=== PATIENT | female | born 1925 | race Caucasian/White ===

== ENCOUNTER 2016-10-24 05:01 | Emergency (ER) | payer MEDICARE ==
[2016-10-24] MEDS ORDERED: PROVENTIL 2.5 MG/3 ML NEB IH ONE ×2 (05:25→05:35)
[2016-10-24] MEDS ORDERED: TYLENOL 325 MG PO ONE (05:25)
[2016-10-24] MEDS ORDERED: NITRO-BID 2% UD PACKETS TOP ONE (05:27)
[2016-10-24 05:42] LABS: Mean Cell Volume 90.1 fl (78-100); Mean Corpuscular Hemoglobin 30.1 pg (26-32); Mean Platelet Volume 9.4 fl (6-9.5); Platelet Count 220 K/mm3 (150-450); Red Blood Count 3.35 M/mm3 (4.1-5.4); Red Cell Distribution Width 13.3 % (11.5-14.0); White Blood Count 10.7 K/mm3 (4.0-10.5)
[2016-10-24 05:44] LABS: Lactic Acid 1.3 (0.4-2.0); VBG BASE EXCESS 4.5 (-2.0-2.0); VBG CARBOXYHEMOGLOBIN 2.4 % T HGB (0.0-6.9); VBG HCO3- 30.3 meq/L (22-28); VBG HEMOGLOBIN 10.1; VBG O2 SATURATION 41.6 (95-100); VBG pH 7.39 (7.32-7.42)
[2016-10-24] MEDS ORDERED: NITRO-BID 2% UD PACKETS ONE (05:45)
--- NOTE | 2016-10-24 05:50 | ERPHSYRPT ---
- History of Present Illness Time Seen by Provider: 10/24/16 05:19 Source: patient, EMS (gave NTG SL and ASA 324mg po [employer]ER) Patient Subjective Stated Complaint: pt states she has been feeling sick since francesca. c/o sob and pain all over. Triage Nursing Assessment: pt alert and oriented. answers questions approp. pt very [place].pt arrive per ambulance. skin pale warm and moist. pt short of breath, lungs with crackles throughout. +3 edema noted to bilat lower ext, pt states unchanged for her. jvd noted to rt side Physician History: CC: short of breath Hx: 89 y/o patient of Dr Zhang/Cuco. She reports shortness of breath worse since yesterday AM. She has aches all over her body and felt like she was going to . Has home oxygen and CPAP. She takes dig and blood thinners for afib. She has a pacemaker. She does not desire mechanical ventilation or resuscitation. Timing/Duration: yesterday Severity: moderate, severe Allergies/Adverse Reactions: Iodinated Contrast Media - Oral and [Iodinated Contrast Media - IV Dye] Allergy (Verified 10/24/16 05:34) Penicillins Allergy (Verified 10/24/16 05:34) Home Medications: Alprazolam [Xanax 0.5 mg] 0.5 mg PO HS PRN 02/15/14 [History] Amlodipine Besylate 10 mg [Norvasc 10 MG] 10 mg PO DAILY 02/15/14 [History] Clopidogrel Bisulfate [Plavix] 37.5 mg PO DAILY 02/15/14 [History] Digoxin 0.125 mg Tablet [Lanoxin 0.125MG TABLET] 0.125 mg PO UD 02/15/14 [ History] Esomeprazole Magnesium [Nexium] 40 mg PO DAILY 02/15/14 [History] Furosemide [Lasix] 20 mg PO DAILY 02/15/14 [History] Isosorbide Mononitrate 30 mg [Imdur 30 MG] 30 mg PO BID 02/15/14 [History] Labetalol HCl [Trandate] 200 mg PO BID 02/15/14 [History] Ropinirole HCl [Requip] 3 mg PO BID 02/15/14 [History] Ferrous Sulfate 325 mg PO DAILY 05/08/15 [History] Ramipril [Altace] 10 mg PO DAILY 05/08/15 [History] Apixaban [Eliquis] 5 mg PO DAILY 10/24/16 [History] Donepezil HCl 10 mg [Aricept 10 MG] 10 mg PO DAILY 10/24/16 [History] Doxazosin Mesylate 2 mg [Cardura 2 mg] 2 mg PO DAILY 10/24/16 [History] Febuxostat [Uloric] 40 mg PO DAILY 10/24/16 [History] Hx Tetanus, Diphtheria Vaccination/Date Given: Yes (UNKNOWN) Hx Influenza Vaccination/Date Given: Yes Hx Pneumococcal Vaccination/Date Given: Yes Immunizations Up to Date: Yes - Review of Systems Constitutional: Fatigue, Malaise, No Fever, No Chills Eyes: No Symptoms Respiratory: Cough, Dyspnea Cardiac: No Chest Pain Abdominal/Gastrointestinal: Nausea, No Abdominal Pain, No Vomiting, No Diarrhea Genitourinary Symptoms: No Dysuria Skin: No Rash Neurological: No Focal Weakness, No Headache, No Parasthesia All Other Systems: Reviewed and Negative - Past Medical History Pertinent Past Medical History: Yes Neurological History: Peripheral Neuropathy, TIA ENT History: Cataracts Cardiac History: Hypertension Respiratory History: Sleep Apnea Endocrine Medical History: No Pertinent History Musculoskeletal History: Arthritis GI Medical History: Diverticulosis, GERD History: Renal Disease Psycho-Social History: Anxiety Other Medical History: pt poor historian - Past Surgical History Past Surgical History: Yes Neuro Surgical History: No Pertinent History Cardiac: CABG, Vascular Surgery Respiratory: No Pertinent History Gastrointestinal: Cholecystectomy Genitourinary: Kidney Surgery Musculoskeletal: No Pertinent History Female Surgical History: Hysterectomy - Social History Smoking Status: Former smoker Exposure to second hand smoke: No Drug Use: none Patient Lives Alone: Yes [place]) - Female History Hx Last Menstrual Period: post - Nursing Vital Signs Nursing Vital Signs: Initial Vital Signs Temperature 99.9 F Temperature Source Rectal Pulse Rate 60 Respiratory Rate 20 Blood Pressure [Right Arm] 159/52 Pain Intensity 2 - Physical Exam General Appearance: alert, other (resp distress) Eye Exam: PERRL/EOMI Ears, Nose, Throat Exam: dry mucous membranes Neck Exam: normal inspection, supple, No meningismus Respiratory Exam: respiratory distress (mild), crackles/rales Cardiovascular Exam: regular rate/rhythm Gastrointestinal/Abdomen Exam: soft, No tenderness, No distention, No mass, No guarding Back Exam: normal inspection Extremity Exam: pedal edema, No calf tenderness Neurologic Exam: alert, oriented x 3, cooperative, sensation nml, No motor deficits Skin Exam: warm, dry, No rash SpO2 Interpretation: hypoxic, O2 applied SpO2: 75 Oxygen Delivery: Room Air - Course Nursing assessment & vital signs reviewed: Yes EKG Interpreted by Me: RATE (63 atrial paced rhythm), Right Bundle Branch Block (unchanged from prior) Ordered Tests: Active Orders 24 hr Category Date Time Status Junior Accountant STAT Care 10/24/16 05:24 Active Catheter-[place] STAT Care 10/24/16 06:11 Active EKG-ER Only STAT Care 10/24/16 05:24 Active IV Insertion STAT Care 10/24/16 05:24 Active Oxygen-ED Only NASAL CANNULA 2 lpm Care 10/24/16 05:24 Active Pulse Oximetry (ED) STAT Care 10/24/16 05:24 Active CHEST 1 VIEW (PORTABLE) Stat Exams 10/24/16 05:24 Taken BLOOD CULTURE Stat Lab 10/24/16 05:40 Ordered CBC W DIFF Stat Lab 10/24/16 05:40 Completed CK-Creatinine Phosphokinase Routine Lab 10/24/16 05:40 Completed CMP Routine Lab 10/24/16 05:40 Completed CULTURE,URINE Stat Lab 10/24/16 05:55 Received DIGOXIN Routine Lab 10/24/16 05:40 Completed Lactic Acid Urgent Lab 10/24/16 05:40 Completed Manual Differential NC Stat Lab 10/24/16 05:40 Completed NT PRO BNP Routine Lab 10/24/16 05:40 Completed PROTIME WITH INR Stat Lab 10/24/16 05:40 Completed PTT Stat Lab 10/24/16 05:40 Completed TROPONIN Q3H Lab 10/24/16 05:40 Completed TROPONIN Q3H Lab 10/24/16 08:30 Ordered TROPONIN Q3H Lab 10/24/16 11:30 Ordered TROPONIN Q3H Lab 10/24/16 14:30 Ordered TROPONIN Q3H Lab 10/24/16 17:30 Ordered UA W/ MICROSCOPIC Stat Lab 10/24/16 06:00 Completed VENOUS BLOOD GAS Urgent Lab 10/24/16 05:40 Completed BiPap/CPAP Assessment STAT RT 10/24/16 05:54 Active Respiratory Nebulizer STAT RT 10/24/16 05:25 Completed Medication Summary Generic Name Dose Route Start Last Admin Trade Name Hayley PRN Reason Stop Dose Admin Azithromycin 250 mls @ 125 mls/hr 10/24/16 06:09 10/24/16 06:20 Zithromax 500 Mg/ 250 Ml Nacl Premix IV 10/24/16 08:08 125 mls/hr STAT ONE Administration Discontinued Medications Generic Name Dose Route Start Last Admin Trade Name Hayley PRN Reason Stop Dose Admin Acetaminophen 650 mg 10/24/16 05:25 10/24/16 06:20 Tylenol 325 Mg PO 10/24/16 05:26 650 mg STAT ONE Administration Acetaminophen Confirm 10/24/16 06:15 Tylenol 325 Mg Administered 10/24/16 06:16 Dose 650 mg .ROUTE .STK-MED ONE Albuterol Sulfate 2.5 mg 10/24/16 05:25 10/24/16 05:36 Proventil 2.5 Mg/3 Ml Neb IH 10/24/16 05:26 2.5 mg STAT ONE Administration Albuterol Sulfate Confirm 10/24/16 05:35 Proventil 2.5 Mg/3 Ml Neb Administered 10/24/16 05:36 Dose 2.5 mg IH .STK-MED ONE Furosemide 20 mg 10/24/16 06:09 10/24/16 06:20 Lasix 40 Mg/4 Ml IV 10/24/16 06:10 20 mg STAT ONE Administration Furosemide Confirm 10/24/16 06:15 Lasix 40 Mg/4 Ml Administered 10/24/16 06:16 Dose 40 mg .ROUTE .STK-MED ONE Ceftriaxone Sodium/Dextrose 50 mls @ 100 mls/hr 10/24/16 06:09 10/24/16 06:20 Rocephin 1 Gm-D5w 50 Ml Bag IV 10/24/16 06:38 100 mls/hr STAT ONE Administration Azithromycin Confirm 10/24/16 06:15 Zithromax 500 Mg/ 250 Ml Nacl Premix Administered 10/24/16 06:16 Dose 250 mls @ ud IV .STK-MED ONE Ceftriaxone Sodium/Dextrose Confirm 10/24/16 06:15 Rocephin 1 Gm-D5w 50 Ml Bag Administered 10/24/16 06:16 Dose 50 mls @ ud IV .STK-MED ONE Nitroglycerin 1 gm 10/24/16 05:27 10/24/16 06:23 Nitro-Bid 2% Ud Packets TOP 10/24/16 05:28 1 gm STAT ONE Administration Nitroglycerin Confirm 10/24/16 05:45 Nitro-Bid 2% Ud Packets Administered 10/24/16 05:46 Dose 1 gm .ROUTE .STK-MED ONE Lab/Rad Data: Laboratory Result Diagrams 10/24/16 05:40 10/24/16 05:40 Laboratory Results 10/24/16 10/24/16 10/24/16 Range/Units 06:00 05:40 05:40 WBC (4.0-10.5) K/mm3 RBC (4.1-5.4) M/mm3 Hgb (12.0-16.0) gm/dl Hct (35-47) % MCV (78-100) fl MCH (26-32) pg MCHC (32-36) g/dl RDW (11.5-14.0) % Plt Count (150-450) K/mm3 MPV (6-9.5) fl Segmented Neutrophils (36.0-66.0) % Lymphocytes (Manual) (24-44) % Monocytes (Manual) (0.0-12.0) % Differential Comment Platelet Estimate (NORMAL) Polychromasia Anisocytosis INR (0.8-3.0) PTT (25.3-37.0) SECONDS VBG pH 7.39 (7.32-7.42) VBG pCO2 at Pat Temp 50 (42-55) mm/Hg VBG pO2 at Pat Temp 24 L (25-40) mm/Hg VBG HCO3 30.3 H* (22-28) meq/L VBG O2 Sat (Donna) 41.6 L (95-100) VBG Base Excess 4.5 H (-2.0-2.0) VBG Hemoglobin 10.1 VBG Carboxyhemoglobin 2.4 (0.0-6.9) % T HGB POC Potassium 4.0 (3.5-5.1) Sodium (136-145) mEq/L Potassium (3.5-5.1) mEq/L Chloride (98-107) mEq/L Carbon Dioxide (21-32) mEq/L Anion Gap (5-15) MEQ/L BUN (9-20) mg/dL Creatinine (0.55-1.30) mg/dl Estimated GFR ML/MIN Glucose (70-110) MG/DL Lactic Acid 1.3 (0.4-2.0) Calcium (8.5-10.1) mg/dL Total Bilirubin (0.2-1.0) mg/dL AST (15-37) U/L ALT (12-78) U/L Alkaline Phosphatase (46-116) U/L Creatine Kinase (26-192) U/L Troponin I (0.000-0.056) ng/ml NT-Pro-B Natriuret Pep (0-450) pg/ml Serum Total Protein (6.4-8.2) gm/dL Albumin (3.4-5.0) g/dL Ur Collection Type CATH Urine Color YELLOW (YELLOW) Urine Appearance CLOUDY (CLEAR) Urine pH 5.0 (5-6) Ur Specific [place] 1.025 (1.005-1.025) Urine Protein >=300 (Negative) Urine Glucose (UA) NEGATIVE (NEGATIVE) mg/dL Urine Ketones NEGATIVE (NEGATIVE) Urine Nitrite NEGATIVE (NEGATIVE) Urine Bilirubin NEGATIVE (NEGATIVE) Urine Urobilinogen 0.2 (0-1) mg/dL Urine WBC (Auto) NEGATIVE (NEGATIVE) Urine RBC (Auto) MODERATE (0-5) [place] Urine Microscopic RBC 15-25 (0-2) /HPF Urine Microscopic WBC 5-10 (0-5) /HPF Ur Epithelial Cells FEW (FEW) /HPF Amorphous Crystals MODERATE (NEGATIVE) /HPF Urine Bacteria MANY (NEGATIVE) /HPF Hyaline Casts 10-25 (0-2) /LPF Digoxin (0.9-2.0) ng/ml Influenza Type A Ag NEGATIVE (NEGATIVE) Influenza Type B Ag NEGATIVE (NEGATIVE) RSV (PCR) NEGATIVE (Negative) Specimen Received 10/24/16 0600 10/24/16 10/24/16 10/24/16 Range/Units 05:40 05:40 05:40 WBC 10.7 H (4.0-10.5) K/mm3 RBC 3.35 L (4.1-5.4) M/mm3 Hgb 10.1 L (12.0-16.0) gm/dl Hct 30.2 L (35-47) % MCV 90.1 (78-100) fl MCH 30.1 (26-32) pg MCHC 33.4 (32-36) g/dl RDW 13.3 (11.5-14.0) % Plt Count 220 (150-450) K/mm3 MPV 9.4 (6-9.5) fl Segmented Neutrophils 74 H (36.0-66.0) % Lymphocytes (Manual) 11 L (24-44) % Monocytes (Manual) 15 H (0.0-12.0) % Differential Comment ABNORMAL Platelet Estimate NORMAL (NORMAL) Polychromasia 1+ Anisocytosis 1+ INR 1.90 (0.8-3.0) PTT 39.2 H (25.3-37.0) SECONDS VBG pH (7.32-7.42) VBG pCO2 at Pat Temp (42-55) mm/Hg VBG pO2 at Pat Temp (25-40) mm/Hg VBG HCO3 (22-28) meq/L VBG O2 Sat (Donna) (95-100) VBG Base Excess (-2.0-2.0) VBG Hemoglobin VBG Carboxyhemoglobin (0.0-6.9) % T HGB POC Potassium (3.5-5.1) Sodium 136 (136-145) mEq/L Potassium 3.9 (3.5-5.1) mEq/L Chloride 98 (98-107) mEq/L Carbon Dioxide 28.3 (21-32) mEq/L Anion Gap 13.3 (5-15) MEQ/L BUN 40 H (9-20) mg/dL Creatinine 2.04 H (0.55-1.30) mg/dl Estimated GFR 24 ML/MIN Glucose 119 H (70-110) MG/DL Lactic Acid (0.4-2.0) Calcium 9.2 (8.5-10.1) mg/dL Total Bilirubin 0.6 (0.2-1.0) mg/dL AST 21 (15-37) U/L ALT 12 (12-78) U/L Alkaline Phosphatase 91 (46-116) U/L Creatine Kinase 83 (26-192) U/L Troponin I 0.238 H* (0.000-0.056) ng/ml NT-Pro-B Natriuret Pep 25575 H (0-450) pg/ml Serum Total Protein 6.7 (6.4-8.2) gm/dL Albumin 2.7 L (3.4-5.0) g/dL Ur Collection Type Urine Color (YELLOW) Urine Appearance (CLEAR) Urine pH (5-6) Ur Specific [place] (1.005-1.025) Urine Protein (Negative) Urine Glucose (UA) (NEGATIVE) mg/dL Urine Ketones (NEGATIVE) Urine Nitrite (NEGATIVE) Urine Bilirubin (NEGATIVE) Urine Urobilinogen (0-1) mg/dL Urine WBC (Auto) (NEGATIVE) Urine RBC (Auto) (0-5) [place] Urine Microscopic RBC (0-2) /HPF Urine Microscopic WBC (0-5) /HPF Ur Epithelial Cells (FEW) /HPF Amorphous Crystals (NEGATIVE) /HPF Urine Bacteria (NEGATIVE) /HPF Hyaline Casts (0-2) /LPF Digoxin 0.47 L (0.9-2.0) ng/ml Influenza Type A Ag (NEGATIVE) Influenza Type B Ag (NEGATIVE) RSV (PCR) (Negative) Specimen Received - Progress Progress Note: 10/24/16 05:51 20 ga PIV placed right AC with ultrasound guidance. 10/24/16 06:10 CXR shows bilateral infiltrates worse in RUL and RLL with CM. Likely CHF. CPAP initiated for comfort. NTG paste and Lasix given. She is allergic to PCN which caused rash. Will cover with abtx for possible pneumonia. She desires no code. 10/24/16 06:43 The patient feels better with treatments. Elevated creat more than baseline and elvated troponin. She sees Dr Norwood and Dr Saavedra- renal. She desires trasnfer to [facility]. Paged one call at [facility] to arrange transfer at patient request. 10/24/16 06:[address] Pride hospitalist at [facility] who accepts [facility]. Counseled pt/family regarding: lab results, diagnosis, need for follow-up, rad results - Departure Time of Disposition: 06:53 Departure Disposition: Transfer ([facility]) Clinical Impression: Acute dyspnea, CHF (congestive heart failure), Non-STEMI (non-ST elevated myocardial infarction), Renal failure (ARF), acute on chronic Condition: Fair Critical Care Time: Yes Critical Care Time(excluding separately billable procedures): 30-74 minutes Referrals: ZAY ZHANG [Primary Care Provider] -
[2016-10-24 05:53] LABS: INR 1.9 (0.8-3.0); PROTIME 20.9 SECONDS (9.95-12.35)
[2016-10-24 05:56] LABS: PTT 39.2 SECONDS (25.3-37.0)
[2016-10-24] MEDS ORDERED: Lasix 40 MG/4 ML IV ONE (06:09)
[2016-10-24] MEDS ORDERED: ROCEPHIN 1 Gm-D5w 50 ml Bag** 50 ML IV ONE ×2 (06:09→06:15)
[2016-10-24] MEDS ORDERED: Zithromax 500 MG/ 250 ML NaCl Premix 250 ML IV ONE ×2 (06:09→06:15)
[2016-10-24] MEDS ORDERED: Lasix 40 MG/4 ML ONE (06:15)
[2016-10-24] MEDS ORDERED: TYLENOL 325 MG ONE (06:15)
[2016-10-24 06:16] LABS: ALBUMIN 2.7 g/dL (3.4-5.0); ANION GAP 13.3 MEQ/L (5-15); BILIRUBIN,TOTAL 0.6 mg/dL (0.2-1.0); Carbon Dioxide 28.3 mEq/L (21-32); Potassium 3.9 mEq/L (3.5-5.1); Total Protein 6.7 gm/dL (6.4-8.2)
[2016-10-24 06:17] LABS: ANISOCYTOSIS 1+; Platelet Estimate NORMAL (NORMAL); Polychromasia 1+; Total Cells Counted 100
[2016-10-24 06:19] LABS: TROPONIN 0.238 ng/ml (0.000-0.056)
[2016-10-24 06:23] LABS: Collection Type CATH
[2016-10-24 06:32] LABS: COMPLETE URINE MICROSCOPIC? YES
[2016-10-24 06:36] LABS: Bacteria MANY /HPF (NEGATIVE); Epithelial Cells FEW /HPF (FEW)
[2016-10-24 07:45] VITALS: O2SAT 92
[2016-10-24 08:21] VITALS: BP 155/60; PULSE 62
--- NOTE | 2016-10-24 17:54 | XRAY ---
Indication: Short of breath. Comparison: February 19, 2008. Portable chest demonstrates cardiomegaly with new vascular congestion, pulmonary edema, and small bibasilar effusions favoring cardiac decompensation. Superimposed pneumonia not complete excluded. Stable sternotomy wires and right-sided dual-lead pacemaker.
== END 2016-10-24 08:20 | disposition short-term general hospital (02) ==
LOC: ED 05:01 → SUPCPDRO 05:01 → ED 08:20
DX: R06.00 Dyspnea, unspecified (principal); I50.9 Heart failure, unspecified; I21.4 Non-ST elevation (NSTEMI) myocardial infarction; N17.9 Acute kidney failure, unspecified; Z79.899 Other long term (current) drug therapy; Z79.01 Long term (current) use of anticoagulants; I48.2 Chronic atrial fibrillation
CPT/HCPCS: 93041; 96374; 96365; 96366; 99291; 51702; 96360; 96361; 93005; 87040; 81000; 85610; 85730; 82550; 80162; 83880; 87186; 85025; 87077; 80053; 84484; 87086; 87631; 82805; 94640; 83605; A9270 ×3; 36000; 36415; 71010; 94002; 96367; 99285; J0456; J0696; J1940